=== PATIENT | female | born 1945 | race Caucasian/White ===

== ENCOUNTER 2016-07-13 19:52 | Emergency (ER) | payer MEDICARE, BC ==
[2012-09-01 06:55] VITALS: BMI 33.5
[~2016-07-13 19:52] MED LIST: NORCO 10/325 TA1 TA1 PO; PROZAC40 MG PO; SELENIUM PO; SYNTHROID100 MCG PO; VOLTAREN75 MG PO; ZESTRIL40 MG PO
[2016-07-13 20:57] LABS: BASOPHILS 0.4 % (0-2); EOSINOPHILS 1.8 % (0-7); HEMATOCRIT 34.8 % (36.0-48.0); HEMOGLOBIN 11.3 g/dL (12-16); IMMATURE GRANULOCYTES 0.4 % (0-5); LYMPHOCYTES 37.8 % (15-50); MCH 30.7 pg (26.0-34.0); MCHC 32.5 g/dL (31.0-37.0); MCV 94.6 fL (80.0-100.0); MEAN PLATELET VOLUME 9.3 fL (7.4-10.4); MONOCYTES 9.3 % (2-11); NEUTROPHILS 50.3 % (40-80); PLATELET COUNT 332 10x3/uL (130-400); RBC 3.68 10x6/uL (4.00-5.40); RDW 13.9 % (11.5-14.5); WBC 10.3 10x3/uL (4.8-10.8)
[2016-07-13 22:43] LABS: ALBUMIN 3.7 g/dL (3.4-5.0); ANION GAP 14.4 mmol/L (8-16); BILIRUBIN - TOTAL 0.14 mg/dL (0.2-1.3); CALCIUM 9.4 mg/dL (8.5-10.1); CREATININE - SERUM 1.5 mg/dL (0.6-1.3); POTASSIUM - SERUM 4.4 mmol/L (3.5-5.1); PROTEIN - SERUM 7.3 g/dL (6.4-8.2)
== END 2016-07-13 23:27 | disposition home or self-care (01) ==
LOC: D.ER 19:52
PROVIDERS: Emergency Medicine; Physician Assistant
DX: R10.9 Unspecified abdominal pain (principal); K59.00 Constipation, unspecified; I10 Essential (primary) hypertension; E03.9 Hypothyroidism, unspecified

== ENCOUNTER → 2017-09-30 19:25 | Outpatient (CLI) | payer MEDICARE, BC ==
[2012-09-01 06:55] VITALS: BMI 33.5
== END | disposition home or self-care (01) ==
LOC: D.SLEEP 19:25
DX: G47.33 Obstructive sleep apnea (adult) (pediatric) (principal); Z01.812 Encounter for preprocedural laboratory examination

== ENCOUNTER → 2018-09-15 13:22 | Outpatient (CLI) | payer MEDICARE, BC ==
[2012-09-01 06:55] VITALS: BMI 33.5
== END | disposition home or self-care (01) ==
LOC: D.HCCARDIO 09-09 11:30
PROVIDERS: ATTEND Internal Medicine Cardiovascular Disease
DX: I34.0 Nonrheumatic mitral (valve) insufficiency (principal)

== ENCOUNTER 2018-11-29 22:48 | Emergency (ER) | payer MEDICARE, BC ==
[~2018-11-29] VITALS: Ht 156.2 cm; Wt 84.1 kg
[2018-11-29 22:54] VITALS: Ht 156.2 cm; Wt 84.1 kg
[2018-11-29] MEDS ORDERED: CLARITIN 10 MG10 MG PO (22:57)
[2018-11-29] MEDS ORDERED: DIOVAN320 MG PO (22:57)
[2018-11-29] MEDS ORDERED: CATAPRES0.1 MG PO (22:58)
[2018-11-29 23:21] LABS: HEMATOCRIT 39.9 % (36.0-48.0); HEMOGLOBIN 12.8 g/dL (12-16); MCHC 32.1 g/dL (31.0-37.0); MCV 93.7 fL (80.0-100.0); MEAN PLATELET VOLUME 9.1 fL (7.4-10.4); PLATELET COUNT 309 10x3/uL (130-400); RBC 4.26 10x6/uL (4.00-5.40); RDW 14.1 % (11.5-14.5)
[2018-11-29 23:30] LABS: EOSINOPHILS 4 % (0-7); LYMPHOCYTES 35 % (15-50); MONOCYTES 9 % (2-11); NEUTROPHILS 52 % (40-80); PLATELET ESTIMATE NORMAL
[2018-11-29 23:32] LABS: ALBUMIN 3.5 g/dL (3.4-5.0); ALKALINE PHOSPHATASE 94 U/L (46-116); ALT (SGPT) 20 U/L (10-68); BILIRUBIN - TOTAL 0.23 mg/dL (0.2-1.3); CALC OSMOLALITY 275 mosm/kg (275-300); CALCIUM 8.7 mg/dL (8.5-10.1); CARBON DIOXIDE 29.6 mmol/L (21.0-32.0); CHLORIDE - SERUM 102 mmol/L (98-107); CREATININE - SERUM 0.8 mg/dL (0.6-1.3); GLUCOSE 110 mg/dL (74-106); POTASSIUM - SERUM 3.8 mmol/L (3.5-5.1); PROTEIN - SERUM 7.5 g/dL (6.4-8.2); SODIUM 137 mmol/L (136-145); UREA NITROGEN 15 mg/dL (7-18); eGFR NON AFRICAN AMERICAN 74 mL/min (90-120)
[2018-11-29 23:43] LABS: CKMB 0.8 U/L (0.0-3.6); CREATINE KINASE 77 UL (21-215); PRO BNP 56 pg/mL (0-125)
[2018-11-29 23:45] LABS: TROPONIN-I < 0.017 ng/mL (0.000-0.060)
[2018-11-30 00:35] VITALS: BP 102/56
== END 2018-11-30 00:35 | disposition home or self-care (01) ==
LOC: D.ER 22:48
PROVIDERS: Family Medicine
DX: R51 Headache (principal); I10 Essential (primary) hypertension